=== PATIENT | female | born 1960 | race Caucasian/White ===

== ENCOUNTER 2019-06-20 11:45 | Day surgery (SDC) | payer OTHER ==
[2019-06-20] MEDS ORDERED: LIDOCAINE 2% (SDV) 5 ML INJ (16:49)
[2019-06-20] MEDS ORDERED: PROPOFOL 60 ML (16:49)
[2019-06-20] MEDS ORDERED: GLUCAGON 1 MG INJ (17:12)
[2019-06-20] MEDS ORDERED: PROPOFOL 20 ML ×2 (17:25)
== END 2019-06-20 18:22 | disposition home or self-care (01) ==
LOC: GIL 11:45
DX: Z12.11 Encounter for screening for malignant neoplasm of colon (principal); D12.2 Benign neoplasm of ascending colon; D12.0 Benign neoplasm of cecum; D12.4 Benign neoplasm of descending colon; D12.7 Benign neoplasm of rectosigmoid junction; D12.5 Benign neoplasm of sigmoid colon; I10 Essential (primary) hypertension; E78.5 Hyperlipidemia, unspecified; J44.9 Chronic obstructive pulmonary disease, unspecified; F17.200 Nicotine dependence, unspecified, uncomplicated; E66.01 Morbid (severe) obesity due to excess calories; Z68.39 Body mass index [BMI] 39.0-39.9, adult
CPT/HCPCS: 45380; 88305